=== PATIENT | female | born 1975 | race Caucasian/White ===

== ENCOUNTER → 2019-07-13 | Outpatient (CLI) | payer OTHER ==
[~2019-07-13] MED LIST: PARO30 PO
== END | disposition home or self-care (01) ==
LOC: PLD 15:46 → LAB SHORT 15:46
DX: D22.5 Melanocytic nevi of trunk (principal)
CPT/HCPCS: 88305

== ENCOUNTER → 2021-05-08 | Outpatient (CLI) | payer OTHER ==
[2021-05-09 10:33] LABS: Candida species (DNA Probe) Positive (NEGATIVE); G. vaginalis (DNA Probe) Negative (NEGATIVE); T. vaginalis (DNA Probe) Negative (NEGATIVE)
== END | disposition home or self-care (01) ==
LOC: LAB SHORT 09:30 → LAB 09:30
PROVIDERS: Nurse Practitioner Family
DX: Z11.3 Encounter for screening for infections with a predominantly sexual mode of transmission (principal)
CPT/HCPCS: 87480; 87510; 87660

== ENCOUNTER 2023-03-18 10:34 | Day surgery (SDC) | payer OTHER ==
[~2023-03-18] VITALS: Ht 167.6 cm; Wt 80.8 kg
[2023-03-18] MEDS ORDERED: Testopel75 MG (10:59)
[2023-03-18] MEDS ORDERED: ALBUTEROL0.63 MG/3 (11:00)
[2023-03-18] MEDS ORDERED: MULVITA (11:00)
[2023-03-18] MEDS ORDERED: Vitamin C100 M1 (11:00)
[2023-03-18] MEDS ORDERED: THERA-D2000 UNIT (11:00)
[2023-03-18] MEDS ORDERED: CLIMARA1 EACH (11:01)
[2023-03-18] MEDS ORDERED: PROG100 (11:01)
[2023-03-18 12:31] VITALS: BP 105/78
== END 2023-03-18 12:33 | disposition home or self-care (01) ==
LOC: ORSCSDS 10:34
PROVIDERS: Student in an Organized Health Care Education/Training Program
PROC: 0DBL8ZX Excision of Transverse Colon, Via Natural or Artificial Opening Endoscopic, Diagnostic (ICD-10-PCS; principal; 2023-03-18 12:00)
PROC: 0DBM8ZX Excision of Descending Colon, Via Natural or Artificial Opening Endoscopic, Diagnostic (ICD-10-PCS; principal; 2023-03-18 12:00)
DX: Z12.11 Encounter for screening for malignant neoplasm of colon (principal); D12.4 Benign neoplasm of descending colon; K63.5 Polyp of colon; Z86.010 Personal history of colon polyps; G47.33 Obstructive sleep apnea (adult) (pediatric); Z79.899 Other long term (current) drug therapy
CPT/HCPCS: 88305; J2250; J2704; J7120